=== PATIENT | female | born 1965 | race Caucasian/White ===

== ENCOUNTER 2024-10-31 08:18 | Outpatient (CLI) | payer OTHER | END 2024-10-31 08:19 | disposition home or self-care (01) | LOC: CSHMAMMO 08:18 | PROVIDERS: ATTEND Family Medicine | DX: Z12.31 Encounter for screening mammogram for malignant neoplasm of breast (principal) | CPT/HCPCS: 77063; 77067 ==

== ENCOUNTER 2024-11-29 11:20 | Outpatient (CLI) | payer OTHER ==
[2024-11-29 12:33] LABS: #Basophils 0.09 10x3/uL (0.0-0.2); #Eosinophils 0.42 10x3/uL (0.0-0.5); #Monocytes 1.28 10x3/uL (0.0-1.1); #Neutrophils 7.19 10x3/uL (1.5-8.4); %Basophils 0.8 % (0.0-2.0); %Eosinophils 3.7 % (0.0-6.0); %Lymphocytes 20.6 % (18.0-47.0); %Monocytes 11.2 % (0.0-10.0); %Neutrophils 63.1 % (40.0-75.0); Hematocrit 42.2 % (34.9-44.5); Hemoglobin 13.4 g/dL (12.0-15.5); Mean Corpuscular HGB CONC 31.8 g/dL (32.0-36.0); Mean Corpuscular Hemoglobin 28.5 pg (27.0-33.0); Mean Corpuscular Volume 89.8 fL (81.6-98.3); Mean Platelet Volume 9.7 fL (7.4-10.4); Platelet Count 372 10x3/uL (150-450); RBC Distribution Width 15.1 % (11.5-14.5)
[2024-11-29 12:50] LABS: ALT (SGPT) 20 U/L (8-55); AST (SGOT) 17 U/L (5-34); Albumin 3.2 g/dL (3.5-5.0); Alkaline Phosphatase 88 U/L (40-110); Anion Gap 12 mmol/L (10-20); BUN (Urea Nitrogen) 15 mg/dL (9.8-20.1); Bilirubin, Total 0.2 mg/dL (0.2-1.2); Calc. Creatinine Clearance 0 mL/min (70-130); Calcium 9.1 mg/dL (7.8-10.44); Carbon Dioxide 27 mmol/L (22-29); Chloride 106 mmol/L (98-107); Estimated GFR 76; Globulin 3.5 g/dL (2.4-3.5); Glucose 100 mg/dL (70-105); Potassium 4.1 mmol/L (3.5-5.1); Protein, Total 6.7 g/dL (6.0-8.3); Sodium 141 mmol/L (136-145)
== END 2024-11-29 11:21 | disposition home or self-care (01) ==
LOC: CSHLAB 11:20
PROVIDERS: ATTEND Specialist
DX: Z01.818 Encounter for other preprocedural examination (principal); K80.20 Calculus of gallbladder without cholecystitis without obstruction
CPT/HCPCS: 71046; 80053; 85025; 93005; 93010

== ENCOUNTER 2024-12-06 09:21 | Day surgery (SDC) | payer OTHER ==
[2024-11-29 12:04] VITALS: BMI 45.1
[2024-12-06] MEDS ORDERED: Acetaminophen 500 MG TAB ONE (09:50)
[2024-12-06] MEDS ORDERED: Ketorolac Tromethamine 30 MG (1 mL) VIAL ONE (09:50)
[2024-12-06] MEDS ORDERED: CEFAZOLIN 2 GM VIAL ONE (10:38)
[2024-12-06] MEDS ORDERED: Indocyanine Green 25 MG/10 ML VIAL ONE (12:57)
[2024-12-06] MEDS ORDERED: Bupivacaine/Epinephrine 0.25% 30 ML VIAL ONE (13:51)
[2024-12-06] MEDS ORDERED: Rocuronium Bromide 10 MG/ML (10ML VIAL) ONE (14:29)
[2024-12-06] MEDS ORDERED: PROPOFOL 20 ML ONE (14:29)
[2024-12-06] MEDS ORDERED: fentaNYL 50 mcg/mL 1 mL Vial ONE ×2 (14:30→16:35)
[2024-12-06] MEDS ORDERED: Midazolam HCl 2 mg/2 ml Vial ONE (14:30)
[2024-12-06] MEDS ORDERED: Ondansetron PF 4 MG/2 ML Vial ONE (14:31)
[2024-12-06] MEDS ORDERED: Metoclopramide HCl 10 MG (2 mL) VIAL ONE (14:31)
[2024-12-06] MEDS ORDERED: SUGAMMADEX SODIUM 200 MG/2 ML VIAL ONE (15:36)
[2024-12-06] MEDS ORDERED: Dexamethasone 20 MG/5 ML VIAL ONE (15:37)
== END 2024-12-06 17:41 | disposition home or self-care (01) ==
LOC: CSHSDC 09:21
PROVIDERS: ATTEND Specialist
PROC: 0FT44ZZ Resection of Gallbladder, Percutaneous Endoscopic Approach (ICD-10-PCS; principal; 2024-12-06)
DX: K80.10 Calculus of gallbladder with chronic cholecystitis without obstruction (principal); J45.909 Unspecified asthma, uncomplicated; Z79.899 Other long term (current) drug therapy; Z79.51 Long term (current) use of inhaled steroids; Z87.891 Personal history of nicotine dependence; Z88.6 Allergy status to analgesic agent
CPT/HCPCS: 88304; C1889; J1100; J1885; J2250; J2405; J2704; J2765; J3010; S2900